=== PATIENT | female | born 1950 | race Caucasian/White ===

== ENCOUNTER 2022-02-22 18:12 | Inpatient (IN) | payer OTHER ==
[~2022-02-22] VITALS: Ht 147.3 cm; Wt 92.5 kg
[2022-02-22 18:25] VITALS: BP_SYST 179
[2022-02-22] MEDS ORDERED: NACL 0.9% 1,000 ML IV ONE (19:30)
[2022-02-22] MEDS ORDERED: AMPICILLIN SODIUM/SULBACTAM NA 3 GM in NS 100 ML IV ONE (19:30)
[2022-02-22 20:32] LABS: BASOPHILS # (AUTO) 0.1 K/uL (0.0-0.2); BASOPHILS % (AUTO) 0.9 % (0.0-2.0); EOSINOPHILS # (AUTO) 0.2 K/uL (0.0-0.4); EOSINOPHILS % (AUTO) 3.7 % (0.0-4.0); HEMATOCRIT 33.6 % (36-48); HEMOGLOBIN 11.2 g/dL (12.0-16.0); LYMPHOCYTES # (AUTO) 1.6 K/uL (1.0-5.5); LYMPHOCYTES % (AUTO) 23.9 % (20.5-51.5); MEAN CORPUSCULAR HEMOGLOBIN 32 pg (27-31); MEAN CORPUSCULAR HGB CONC 33 % (32-36); MEAN CORPUSCULAR VOLUME 96 fL (79.0-98.0); MONOCYTES # (AUTO) 0.7 K/uL (0.0-1.0); MONOCYTES % (AUTO) 11.1 % (1.7-9.3); NEUTROPHILS % (AUTO) 60.4 % (40.0-70.0); PLATELET COUNT (AUTO) 383 K/uL (130-430); RED BLOOD CELL COUNT(AUTO) 3.52 MIL/uL (4.2-6.2); WHITE BLOOD COUNT (AUTO) 6.6 K/uL (4.8-10.8)
[2022-02-22 20:39] LABS: ANION GAP 7 (5-15); CALCIUM 9.6 mg/dL (8.4-11.0); CHLORIDE 102 mmol/L (98-107); CREATININE 0.87 mg/dL (0.55-1.30); GLUCOSE 104 mg/dL (70-99); UREA NITROGEN, BLOOD 19 mg/dL (8-21)
[2022-02-22 20:45] LABS: ALANINE AMINOTRANSFERASE 13 U/L (12-78); ALBUMIN 2.8 g/dL (3.4-4.8); ASPARTATE AMINOTRANSFERASE 14 U/L (10-37); TOTAL BILIRUBIN 0.3 mg/dL (0.0-1.0)
[2022-02-22] MEDS ORDERED: AMPICILLIN SODIUM/SULBACTAM NA 3 GM VIAL ONE (21:57)
[2022-02-23] MEDS ORDERED: LYR25 PO (00:09)
[2022-02-23] MEDS ORDERED: HYDR-3917 PO (00:09)
[2022-02-23] MEDS ORDERED: LOSA50TA3 PO (00:09)
[2022-02-23] MEDS ORDERED: TAMS-11 PO (00:09)
[2022-02-23 05:50] VITALS: BP_SYST 139
[2022-02-23 06:49] VITALS: BP_SYST 146
[2022-02-23 08:00] VITALS: BP_SYST 140
[2022-02-23] MEDS ORDERED: MORPHINE 4 MG INJ. 4 MG/ML VIAL ONE (10:26)
[2022-02-23 12:00] VITALS: BP_SYST 133
[2022-02-23] MEDS ORDERED: P-EPHED SUL/LORATADINE TAB.SR.12H PO ONE (13:30)
[2022-02-23] MEDS ORDERED: FUROSEMIDE 20 MG/2 ML VIAL IVP ONE (13:30)
[2022-02-23] MEDS: ceFAZolin SODIUM 2 GM in D5W 100 ML IV SCH ×2 (15:59→21:10)
[2022-02-23 16:00] VITALS: BP_SYST 146
[2022-02-23 20:00] VITALS: BP_SYST 115
[2022-02-23] MEDS: MELATONIN 5 MG TABLET PO SCH (21:14)
[2022-02-23] MEDS: P-EPHED SUL/LORATADINE TAB.SR.12H PO SCH (21:15)
[2022-02-23] MEDS: CLINDAMYCIN 2% VAGINAL CREAM VG SCH (21:15)
[2022-02-23] MEDS: FUROSEMIDE 20 MG/2 ML VIAL IVP SCH (21:18)
[2022-02-23] MEDS: HYDROcodone/ACETAMIN 5-325 MG TAB (NORCO/ VICODIN) PO PRN (21:21)
[2022-02-24 01:20] VITALS: BP_SYST 106
[2022-02-24] MEDS: ceFAZolin SODIUM 2 GM in D5W 100 ML IV SCH ×3 (06:02→20:44)
[2022-02-24] MEDS: HYDROcodone/ACETAMIN 5-325 MG TAB (NORCO/ VICODIN) PO PRN ×3 (06:03→20:41)
[2022-02-24 07:45] LABS: BASOPHILS % (AUTO) 1.2 % (0.0-2.0); EOSINOPHILS # (AUTO) 0.3 K/uL (0.0-0.4); EOSINOPHILS % (AUTO) 7.4 % (0.0-4.0); HEMATOCRIT 32.9 % (36-48); HEMOGLOBIN 11.3 g/dL (12.0-16.0); LYMPHOCYTES # (AUTO) 1.3 K/uL (1.0-5.5); LYMPHOCYTES % (AUTO) 32.6 % (20.5-51.5); MEAN CORPUSCULAR HEMOGLOBIN 33 pg (27-31); MEAN CORPUSCULAR HGB CONC 34 % (32-36); MEAN CORPUSCULAR VOLUME 95 fL (79.0-98.0); MONOCYTES # (AUTO) 0.5 K/uL (0.0-1.0); MONOCYTES % (AUTO) 12.3 % (1.7-9.3); NEUTROPHILS # (AUTO) 1.8 K/uL (1.8-7.7); NEUTROPHILS % (AUTO) 46.5 % (40.0-70.0); PLATELET COUNT (AUTO) 330 K/uL (130-430); RED BLOOD CELL COUNT(AUTO) 3.47 MIL/uL (4.2-6.2); RED CELL DISTRIBUTION WIDTH 13.1 % (9.0-15.0)
[2022-02-24 07:57] LABS: ANION GAP 3 (5-15); CALCIUM 8.9 mg/dL (8.4-11.0); CHLORIDE 103 mmol/L (98-107); CREATININE 0.81 mg/dL (0.55-1.30); GLUCOSE 117 mg/dL (70-99); UREA NITROGEN, BLOOD 18 mg/dL (8-21)
[2022-02-24] MEDS ORDERED: MORPHINE 2 MG/ML INJ. SYRINGE IVP PRN (11:15)
[2022-02-24] MEDS ORDERED: NALOXONE HCL 0.4 MG/ML AMP (NARCAN) IVP PRN (11:15)
[2022-02-24] MEDS ORDERED: MORPHINE 4 MG INJ. 4 MG/ML VIAL IVP PRN (11:15)
[2022-02-24] MEDS ORDERED: POTASSIUM CHLORIDE 20 MEQ TAB.PRT.SR PO ONE (11:45)
[2022-02-24 12:30] VITALS: BP_SYST 110
[2022-02-24] MEDS: FUROSEMIDE 20 MG/2 ML VIAL IVP SCH ×2 (12:42→20:43)
[2022-02-24] MEDS: P-EPHED SUL/LORATADINE TAB.SR.12H PO SCH ×2 (12:43→20:41)
[2022-02-24] MEDS: FLUCONAZOLE 100 mg/ NS 50 ML IV SCH (12:55)
[2022-02-24 20:00] VITALS: BP_SYST 127
[2022-02-24] MEDS: MELATONIN 5 MG TABLET PO SCH (20:42)
[2022-02-24] MEDS: CLINDAMYCIN 2% VAGINAL CREAM VG SCH (20:43)
[2022-02-25 03:00] VITALS: BP_SYST 133
[2022-02-25] MEDS: ceFAZolin SODIUM 2 GM in D5W 100 ML IV SCH ×3 (05:27→21:19)
[2022-02-25] MEDS: HYDROcodone/ACETAMIN 5-325 MG TAB (NORCO/ VICODIN) PO PRN ×3 (05:27→21:15)
[2022-02-25 07:57] LABS: BASOPHILS # (AUTO) 0.1 K/uL (0.0-0.2); BASOPHILS % (AUTO) 1.2 % (0.0-2.0); EOSINOPHILS # (AUTO) 0.3 K/uL (0.0-0.4); EOSINOPHILS % (AUTO) 6.8 % (0.0-4.0); HEMATOCRIT 34.9 % (36-48); HEMOGLOBIN 11.8 g/dL (12.0-16.0); LYMPHOCYTES # (AUTO) 1.4 K/uL (1.0-5.5); LYMPHOCYTES % (AUTO) 32.9 % (20.5-51.5); MEAN CORPUSCULAR HEMOGLOBIN 32 pg (27-31); MEAN CORPUSCULAR HGB CONC 34 % (32-36); MEAN CORPUSCULAR VOLUME 95 fL (79.0-98.0); MONOCYTES # (AUTO) 0.6 K/uL (0.0-1.0); MONOCYTES % (AUTO) 14.3 % (1.7-9.3); NEUTROPHILS # (AUTO) 1.9 K/uL (1.8-7.7); NEUTROPHILS % (AUTO) 44.8 % (40.0-70.0); PLATELET COUNT (AUTO) 380 K/uL (130-430); RED BLOOD CELL COUNT(AUTO) 3.67 MIL/uL (4.2-6.2); RED CELL DISTRIBUTION WIDTH 13.2 % (9.0-15.0); WHITE BLOOD COUNT (AUTO) 4.3 K/uL (4.8-10.8)
[2022-02-25 08:50] LABS: ANION GAP 6 (5-15); CALCIUM 8.9 mg/dL (8.4-11.0); CHLORIDE 103 mmol/L (98-107); CREATININE 0.86 mg/dL (0.55-1.30); GLUCOSE 101 mg/dL (70-99); UREA NITROGEN, BLOOD 19 mg/dL (8-21)
[2022-02-25] MEDS: P-EPHED SUL/LORATADINE TAB.SR.12H PO SCH ×2 (09:00→21:14)
[2022-02-25 11:23] VITALS: BP_SYST 100
[2022-02-25] MEDS: CLINDAMYCIN 2% VAGINAL CREAM VG SCH (14:07)
[2022-02-25] MEDS: FUROSEMIDE 20 MG/2 ML VIAL IVP SCH ×2 (14:08→21:15)
[2022-02-25] MEDS: acetaZOLAMIDE 250 MG TABLET (DIAMOX) PO SCH (19:49)
[2022-02-25] MEDS: FLUCONAZOLE 100 mg/ NS 50 ML IV SCH (19:50)
[2022-02-25 20:00] VITALS: BP_SYST 112
[2022-02-25] MEDS: MELATONIN 5 MG TABLET PO SCH (21:13)
[2022-02-25] MEDS: TRIAMCINOLONE ACETONIDE 0.025% 80 GM CREAM.GM. TP SCH (21:16)
[2022-02-26 00:30] VITALS: BP_SYST 115
[2022-02-26] MEDS: ceFAZolin SODIUM 2 GM in D5W 100 ML IV SCH (05:42)
[2022-02-26 07:45] VITALS: BP_SYST 127
[2022-02-26 08:15] LABS: BASOPHILS % (AUTO) 1.1 % (0.0-2.0); EOSINOPHILS # (AUTO) 0.3 K/uL (0.0-0.4); EOSINOPHILS % (AUTO) 6.7 % (0.0-4.0); HEMATOCRIT 34.5 % (36-48); HEMOGLOBIN 11.9 g/dL (12.0-16.0); LYMPHOCYTES # (AUTO) 1.6 K/uL (1.0-5.5); LYMPHOCYTES % (AUTO) 36.7 % (20.5-51.5); MEAN CORPUSCULAR HEMOGLOBIN 33 pg (27-31); MEAN CORPUSCULAR HGB CONC 34 % (32-36); MEAN CORPUSCULAR VOLUME 95 fL (79.0-98.0); MONOCYTES # (AUTO) 0.5 K/uL (0.0-1.0); MONOCYTES % (AUTO) 12.5 % (1.7-9.3); NEUTROPHILS # (AUTO) 1.8 K/uL (1.8-7.7); PLATELET COUNT (AUTO) 374 K/uL (130-430); RED BLOOD CELL COUNT(AUTO) 3.65 MIL/uL (4.2-6.2); RED CELL DISTRIBUTION WIDTH 13.1 % (9.0-15.0); WHITE BLOOD COUNT (AUTO) 4.3 K/uL (4.8-10.8)
[2022-02-26] MEDS: P-EPHED SUL/LORATADINE TAB.SR.12H PO SCH ×2 (09:00→09:21)
[2022-02-26] MEDS: acetaZOLAMIDE 250 MG TABLET (DIAMOX) PO SCH ×2 (09:00→09:21)
[2022-02-26] MEDS: TRIAMCINOLONE ACETONIDE 0.025% 80 GM CREAM.GM. TP SCH (09:00)
[2022-02-26] MEDS: FUROSEMIDE 20 MG/2 ML VIAL IVP SCH (09:23)
[2022-02-26] MEDS ORDERED: DIA250 PO (09:30)
[2022-02-26] MEDS ORDERED: DOXY100C5 PO (09:30)
[2022-02-26 10:27] VITALS: BP_SYST 127
[2022-02-26 13:07] LABS: A/G RATIO 0.6 (0.7-1.7); ALBUMIN 2.7 g/dL (2.9-4.4); ALPHA-1-GLOBULIN 0.4 g/dL (0.0-0.4); BETA GLOBULIN 1.2 g/dL (0.7-1.3); GAMMA GLOBULIN 2.1 g/dL (0.4-1.8); GLOBULIN, TOTAL 4.6 g/dL (2.2-3.9)
[2022-02-28 08:13] LABS: M-SPIKE 0.4 g/dL (Not Observed)
== END 2022-02-26 12:00 | disposition home or self-care (01) | DRG 603 ==
LOC: SED 18:12 → SMU 23:00
PROVIDERS: ADMIT Internal Medicine; ATTEND Internal Medicine
PROC: 5A09357 Assistance with Respiratory Ventilation, Less than 24 Consecutive Hours, Continuous Positive Airway Pressure (ICD-10-PCS; principal; 2022-02-25)
DX: L03.115 Cellulitis of right lower limb (principal); Z68.41 Body mass index [BMI] 40.0-44.9, adult; E44.1 Mild protein-calorie malnutrition; I87.8 Other specified disorders of veins; L03.116 Cellulitis of left lower limb; M79.7 Fibromyalgia; E66.01 Morbid (severe) obesity due to excess calories; N76.0 Acute vaginitis; I83.90 Asymptomatic varicose veins of unspecified lower extremity; Z20.822 Contact with and (suspected) exposure to COVID-19; Z79.899 Other long term (current) drug therapy; Z88.8 Allergy status to other drugs, medicaments and biological substances; I83.92 Asymptomatic varicose veins of left lower extremity; I27.81 Cor pulmonale (chronic)
CPT/HCPCS: 36415; 71045; 72110; 80048; 80053; 82607; 82746; 83036; 83605; 84155; 84165; 85025; 87040; 96365; 99285; J0295; J1450; J1940; J2270; J7040; J7060